=== PATIENT | male | born 1995 | race Caucasian/White ===

== ENCOUNTER 2016-05-22 23:33 | Emergency (ER) | payer SELFPAY | END 2016-05-22 23:45 | disposition left against medical advice (07) | DX: Z53.21 Procedure and treatment not carried out due to patient leaving prior to being seen by health care provider (principal) ==

== ENCOUNTER 2016-05-23 00:33 | Emergency (ER) | payer SELFPAY ==
[2016-05-23 00:37] VITALS: BP 149/96; PULSE 92; RESP 18; TEMP 99; O2SAT 92
--- NOTE | 2016-05-23 00:43 | EDPHY ---
H & P Stated Complaint: left foot injury HPI/ROS: HPI CHIEF COMPLAINT: Left foot, 4th toe injury HISTORY OF PRESENT ILLNESS: This patient very pleasant 20-year-old male, denies any significant medical history and does not take any daily medications he presents emergency room by private vehicle with his girlfriend for left 4th toe pain. Patient states he kicked a wall approximately 5 hours ago and since then has had continuous left 4th toe pain. Denies any other areas of injury. Tells me the current pain is 6/10. Past Medical History: Denies significant medical history Past Surgical History: Denies surgical history Social History: Denies use of drugs alcohol tobacco products Family History: Noncontributory ROS REVIEW OF SYSTEMS: A comprehensive 10 point review of systems is otherwise negative aside from elements mentioned in the history of present illness. Exam Constitutional triage nursing summary reviewed, vital signs reviewed, awake/ alert. Eyes normal conjunctivae and sclera, EOMI, PERRLA. HENT normal inspection, atraumatic, moist mucus membranes, no epistaxis, neck supple/ no meningismus, no raccoon eyes. Respiratory clear to auscultation bilaterally, normal breath sounds, no respiratory distress, no wheezing. Cardiovascular rate normal, regular rhythm, no murmur, no edema, distal pulses normal. Gastrointestinal soft, non-tender, no rebound, no guarding, normal bowel sounds, no distension, no pulsatile mass. Genitourinary no CVA tenderness. Musculoskeletal left foot: neurovascularly intact, good cap refill, warm extremity, full range of motion however over his 4th toe there is a deformity. no midline vertebral tenderness, full range of motion, no calf swelling, no tenderness of extremities, no meningismus, good pulses, neurovascularly intact. Skin pink, warm, & dry, no rash, skin atraumatic. Neurologic awake, alert and oriented x 3, AAOx3, moves all 4 extremities equally, motor intact, sensory intact, CN II-XII intact, normal cerebellar, normal vision, normal speech. Psychiatric normal mood/affect. Heme/Lymph/Immune no lymphadenopathy. Differential Diagnosis: Includes but is not limited to in a particular order, toe fracture, toe dislocation, foot fracture, soft tissue injury, bony contusion Medical Decision Making: This patient had an x-ray of his left foot to rule out significant trauma including fracture dislocation. Re-evaluation: ED x-ray left foot: Negative for visible fracture. However the 4th toe is dislocated distal aspect dorsally. 0236: this patient's x-ray shows a dislocation of the 4th toe. It is dorsally dislocated the distal aspect. 0236: I did discussed options with the patient if he would like me to give him a digital block to numb up his toe and then reduce this however he declined digital block and once reduction without any numbing agent. Procedure note: I put gentle traction on his 4th toe away from his foot and downward and he had successful reduction of his toe. Post reduction he is neurovascularly intact good cap refill, full range of motion of his toes he does have some discomfort of his 4th toe. I did offer him narcotic pain medicine versus ibuprofen he has declined narcotic pain medicine like an ibuprofen 800 mg. Repeat x-ray for post toe reduction: ED x-ray left foot: successful reduction of the toe dislocation. Patient placed in a postop shoe with paresh tape. Understands follow-up with Podiatry. Source: Patient - Personal History Current Tetanus Diphtheria and Acellular Pertussis (TDAP): Yes - Medical/Surgical History Hx Asthma: No Hx Chronic Respiratory Disease: No Hx Diabetes: No Hx Cardiac Disease: No Hx Renal Disease: No Hx Cirrhosis: No Hx Alcoholism: No Hx HIV/AIDS: No Hx Splenectomy or Spleen Trauma: No Other PMH: denies - Social History Smoking Status: Smoker current status UNK Constitutional: Initial Vital Signs Temperature (C) 37.2 C 05/23/16 00:35 Heart Rate 92 05/23/16 00:35 Respiratory Rate 18 05/23/16 00:35 Blood Pressure 149/96 H 05/23/16 00:35 O2 Sat (%) 92 05/23/16 00:35 O2 Delivery Mode Room Air Allergies/Adverse Reactions: No Known Allergies Allergy (Unverified 05/23/16 00:35) Home Medications: Medication Instructions Recorded Ibuprofen [Motrin (*)] 800 mg PO Q6-8PRN #7 tab 05/23/16 Departure - Departure Disposition: Home, Routine, Self-Care Clinical Impression: Dislocated toe Qualifiers: Encounter type: initial encounter Laterality: left Qualifier Code: (S93.105A) Unspecified dislocation of left toe(s), initial encounter Condition: Good Instructions: Foot Sprain (ED), Foot Contusion (ED) Additional Instructions: 1. Please ice her toe. 2. Please protected toe do not cause trauma to her toe. 3. you had a toe dislocation this was successfully reduced here in the emergency room. 4. please follow up with Podiatry. 5.Take ibuprofen for pain control. 6. You may have pain in her toe for the next week however progresses or gets worse or gets more swollen please follow up with the foot doctor. 5. You had a 4th toe dislocation. He repeat x-ray shows reduction of your toe. Referrals: NONE *PRIMARY CARE P,. [Primary Care Provider] - As per Instructions Carrington Fraser MD [Doctor of Podiatric Medicine] - As per Instructions Prescriptions: Ibuprofen [Motrin (*)] 800 mg PO Q6-8PRN #7 tab
--- NOTE | 2016-05-23 08:44 | DX ---
Left Foot, Three Views 2:39 a.m. Indication: Reduction. Comparison: Left foot series from less than one hour prior. Findings: The left fourth toe dislocation has been reduced into anatomic alignment. No discernible c hip fracture. Joint spaces are preserved. Impression: Good alignment post reduction.
--- NOTE | 2016-05-23 09:22 | DX ---
Left Foot, Three Views 00:55 AM Indication: Trauma. Comparison: None. Findings: The fourth toe is dislocated at the proximal interphalangeal joint. The middle and distal phalanx are dislocated dorsally relative to the proximal phalanx (best evident on the lateral view). No fracture. The foot is otherwise normal. Impression: Dislocated left fourth toe.
== END 2016-05-23 03:16 | disposition home or self-care (01) ==
PROC: 0SSQXZZ Reposition Left Toe Phalangeal Joint, External Approach (ICD-10-PCS; principal; 2016-05-23)
DX: S93.115A Dislocation of interphalangeal joint of left lesser toe(s), initial encounter (principal); W22.8XXA Striking against or struck by other objects, initial encounter